=== PATIENT | male | born 1950 | race Caucasian/White ===

== ENCOUNTER 2016-03-29 13:48 | Emergency (ER) | payer OTHER, MEDICARE ==
[~2016-03-29] VITALS: Ht 167.6 cm; Wt 63.5 kg
[~2016-03-29 13:48] MED LIST: AMLO-511 PO; ASPI-891 PO; ATOR40TA28 PO; BACL10TA PO; CLOP75 PO; LISI-661 PO; OMEP20 PO; PERCT PO; TRAZ-147 PO
[2016-03-29 17:22] VITALS: BP 122/89
[2016-03-29] MEDS ORDERED: HYDROCODONE/ACETAMINOPHEN 5-325 MG TABLET PO ONE (17:45)
== END 2016-03-29 18:07 | disposition home or self-care (01) ==
LOC: EMS 13:52
DX: T83.098A Other mechanical complication of other urinary catheter, initial encounter (principal); K21.9 Gastro-esophageal reflux disease without esophagitis; E78.00 Pure hypercholesterolemia, unspecified; I10 Essential (primary) hypertension; Z79.82 Long term (current) use of aspirin
CPT/HCPCS: 51702; 99284